=== PATIENT | male | born 1955 | race African-American/Black ===

== ENCOUNTER 2019-07-10 16:17 | Emergency (ER) | payer BC, OTHER ==
[2019-07-10 16:43] VITALS: BMI 28.7
--- NOTE | 2019-07-10 16:43 | PDOC ---
Rapid Medical Evaluation Chief Complaint: Pain, Acute Time Seen by Provider: 07/10/19 16:41 Medical Evaluation: Allergies Allergy/AdvReac Type Severity Reaction Status Date / Time No Known Allergies Allergy Verified 07/10/19 16:37 07/10/19 16:45 Pt c/o: fell off ladder c/o rt shoulder pain Pt on brief exam: noted seperation at ac joint, belt left in place Pt ordered for: shoulder /clavicle xray Pt to proceed to the ED Discharge Disposition - Diagnosis Anterior shoulder dislocation Fall Qualifiers: Encounter type: initial encounter Qualified Code(s): W19.XXXA - Unspecified fall, initial encounter - Discharge Dispostion Disposition: HOME Condition at time of disposition: Good - Referrals Referrals: Mason Lou MD [Primary Care Provider] - Keyon Blevins MD [Staff Physician] - - Patient Instructions Printed Discharge Instructions: DI for Shoulder Dislocation Additional Instructions: Please take tylenol as needed for pain relief. You may make a follow up appointment with an orthopedist (referral provided here ). If you experience any new, worsening, or concerning symptoms, including severe shoulder pain, right arm that is cool to touch, inability to move the arm, hand , or fingers, change in color of the arm, or any other concerns, please return to the emergency department. - Post Discharge Activity Work/School Note: Back to Work
[2019-07-10] MEDS ORDERED: LIDOCAINE HCL 1%, 10 MG/ML (20ML VIAL) ONE (18:05)
[2019-07-10 18:22] VITALS: TEMP 97.8
[2019-07-10] MEDS ORDERED: fentaNYL CITRATE/PF 1,000 MCG/20 ML AMPUL IVPUSH ONE (18:23)
[2019-07-10] MEDS ORDERED: KETAMINE HCL 200 MG/20 ML VIAL IVPUSH ONE (18:52)
[2019-07-10] MEDS ORDERED: KETAMINE HCL 200 MG/20 ML VIAL ONE (18:55)
--- NOTE | 2019-07-10 19:12 | PDOC ---
Documentation entered by Mohinder Hernandes SCRIBE, acting as scribe for Raquel Jones MD. Raquel Jones MD: This documentation has been prepared by the Cecilio maria Nirvannie, SCRIBE, under my direction and personally reviewed by me in its entirety. I confirm that the documentation accurately reflects all work, treatment, procedures, and medical decision making performed by me. Attending Attestation - Resident Resident Name: Akin Ordonez - ED Attending Attestation I have performed the following: I have examined & evaluated the patient, The case was reviewed & discussed with the resident, I agree w/resident's findings & plan, Exceptions are as noted - HPI HPI: 07/10/19 18:20 The patient is a 63 year old male, with a significant past medical history of htn, who presents to the emergency department s/p fall with right shoulder pain. As per patient, he fell off a ladder subsequently injuring his shoulder. Allergies: NKDA - Physicial Exam PE: 07/10/19 18:56 GENERAL: Well-appearing, well-nourished. No apparent distress. HEENT: Normocephalic, atraumatic. PERRL, EOM intact. CARDIOVASCULAR: Normal S1, S2. Regular rate and rhythm. PULMONARY: Clear to auscultation bilaterally. ABDOMEN: Soft, non-distended, non-tender. EXTREMITIES: +Deformed, discolored right shoulder. SKIN: Warm, dry. No rash NEUROLOGICAL: No focal neurological deficits. - Medical Decision Making 07/10/19 19:10 83-year-old male alert and oriented x3 he was fixing the ceiling inside his home and fell off a ladder onto his right side. He denies hitting his head or any loss of consciousness Patient signed paperwork for consent for sedation and shoulder reduction Patient was placed on nasal cannula oxygen, IV was established, repeat vital signs taken and patient has been on continuous cardiac monitoring 07/10/19 23:00 Postreduction x-ray shows good placement Sensation is intact in his left arm with good radial and ulnar pulses Impression anterior right shoulder dislocation, reduced Plan discharge home with sling to wear for 1 day, Motrin for pain follow-up with Ortho for any further concerns
--- NOTE | 2019-07-10 19:32 | PDOC ---
History of Present Illness - History of Present Illness Initial Comments: Mr. Padilla is a 63 y/o male with non-contributory PMH presenting today s/p mechanical fall from a ladder. Reports that he fell from around 7 feet and landed on his right shoulder. Denies head trauma or neck trauma. Reports pain over his right shoulder worse with range of motion, but denies pain anywhere else. <Akin Ordonez - Last Filed: 07/10/19 21:51> <Raquel Jones - Last Filed: 07/10/19 23:42> - General Chief Complaint: Pain, Acute Stated Complaint: SHOULDER INJUJRY Time Seen by Provider: 07/10/19 16:41 Past History - Past Medical History COPD: No HTN: Yes - Surgical History Abdominal Surgery: Yes (hernia) - Immunization History Immunization Up to Date: Yes - Psycho Social/Smoking Cessation Hx Smoking Status: No Smoking History: Never smoked Number of Cigarettes Smoked Daily: 0 Hx Alcohol Use: No Drug/Substance Use Hx: No <Akin Ordonez - Last Filed: 07/10/19 21:51> <Raquel Jones - Last Filed: 07/10/19 23:42> - Past Medical History Allergies/Adverse Reactions: Allergies Allergy/AdvReac Type Severity Reaction Status Date / Time No Known Allergies Allergy Verified 07/10/19 16:37 Home Medications: Ambulatory Orders Bisoprolol Fumarate/Hctz [Ziac 10-6.25 mg Tablet] 1 each PO 02/13/13 Hydrocodone Bit/Acetaminophen [Vicodin 5-300mg Tablet] 1 - 2 tab PO Q8H #15 tablet 02/13/13 Losartan Potassium [Cozaar] mg PO 02/13/13 Oxycodone HCl/Acetaminophen [Percocet 5-325 mg Tablet] 1 - 2 tab PO Q4H #0 tablet 02/13/13 Review of Systems - Review of Systems Comments:: GENERAL/CONSTITUTIONAL: No fever or chills. No weakness._ HEAD, EYES, EARS, NOSE AND THROAT: No change in vision. No change in hearing. No sore throat._ CARDIOVASCULAR: No chest pain or shortness of breath_ RESPIRATORY: Denies cough, hemoptysis_ GASTROINTESTINAL: No nausea, vomiting, diarrhea or constipation._ GENITOURINARY: No dysuria, frequency, or change in urination._ MUSCULOSKELETAL: Reports right shoulder pain and swelling. SKIN: No rash_ NEUROLOGIC: No headache, vertigo, loss of consciousness, or change in strength/ sensation._ ENDOCRINE: No increased thirst. No abnormal weight change_ HEMATOLOGIC/LYMPHATIC: No anemia, easy bleeding, or history of blood clots._ ALLERGIC/IMMUNOLOGIC: No hives or skin allergy._ <Akin Ordonez - Last Filed: 07/10/19 21:51> *Physical Exam - Vital Signs Last Vital Signs Temp Pulse Resp BP Pulse Ox 97.8 F 98 H 20 198/100 H 100 07/10/19 16:38 07/10/19 19:20 07/10/19 19:20 07/10/19 19:20 07/10/19 19:20 - Physical Exam GENERAL: Awake, alert, and oriented to person/place/time, in no acute distress_ HEAD: No signs of trauma, normoc ephalic, atraumatic _ EYES: PERRLA, EOMI, sclera anicteric, conjunctiva clear_ ENT: Hearing grossly normal, nares patent, oropharynx clear without exudates. No uvular deviation. Moist mucosa_ NECK: Normal ROM, supple, no lymphadenopathy, JVD, or masses_ LUNGS: No distress, speaks in full sentences, clear to auscultation bilaterally _ HEART: Regular rate and rhythm, normal S1 and S2, no murmurs appreciated, peripheral pulses normal and equal bilaterally._ ABDOMEN: Soft, nontender, normoactive bowel sounds. No guarding, no rebound. No masses_ EXTREMITIES: LUE/RLE/LLE: Normal inspection, Normal range of motion, no edema. No clubbing or cyanosis_ RUE: Inspection: No erythema or ecchymosis. Separation at the AC joint with associated TTP worse with range of motion. No open wounds. Compartments soft and compressible. Mild flattening of right deltoid. Sensation: Sensation intact over arm, forearm, hand. Sensation equal bilaterally. Motor: intact AIN/PIN/Ulnar in hand; 5/5 Wrist flex/ext; 4/5 Elbow flex/ext ( limited 2/2 pain); 3/5 Shoulder ABd,Flex (limited 2/2 pain) Vascular: 2+ radial pulse palpated, BCR all fingers <2 sec. NEUROLOGICAL: Cranial nerves II through XII grossly intact. Normal speech, normal gait, no focal sensorimotor deficits _ SKIN: Warm, Dry, normal turgor, no rashes or lesions noted_ <Akin Ordonez - Last Filed: 07/10/19 21:51> - Vital Signs Last Vital Signs Temp Pulse Resp BP Pulse Ox 97.8 F 87 18 144/108 H 98 07/10/19 16:38 07/10/19 23:08 07/10/19 23:08 07/10/19 23:08 07/10/19 23:08 <Raquel Jones - Last Filed: 07/10/19 23:42> ED Treatment Course - RADIOLOGY Radiology Studies Ordered: Category Date Time Status SHOULDER-RIGHT [RAD] Stat Radiology 07/10/19 19:09 Taken - Medications Given in the ED: ED Medications Discontinued Medications Generic Name Dose Route Start Last Admin Trade Name Freq PRN Reason Stop Dose Admin Fentanyl 100 mcg 07/10/19 18:28 07/10/19 18:39 Sublimaze Injection - IVPUSH 07/10/19 18:29 100 mcg ONCE ONE Administration Ketamine HCl 144 mg 07/10/19 18:52 07/10/19 18:50 Ketalar - 1.5 mg/kg (144 mg) 07/10/19 18:53 144 mg IVPUSH Administration ONCE ONE <Akin Ordonez - Last Filed: 07/10/19 21:51> - Medications Given in the ED: ED Medications Discontinued Medications Generic Name Dose Route Start Last Admin Trade Name Freq PRN Reason Stop Dose Admin Fentanyl 100 mcg 07/10/19 18:28 07/10/19 18:39 Sublimaze Injection - IVPUSH 07/10/19 18:29 100 mcg ONCE ONE Administration Ketamine HCl 144 mg 07/10/19 18:52 07/10/19 18:50 Ketalar - 1.5 mg/kg (144 mg) 07/10/19 18:53 144 mg IVPUSH Administration ONCE ONE Midazolam HCl 1 mg 07/10/19 21:13 07/10/19 21:39 Versed - IVPUSH 07/10/19 21:14 1 mg ONCE ONE Administration Morphine Sulfate 4 mg 07/10/19 21:05 07/10/19 21:13 Morphine Injection - IVPUSH 07/10/19 21:06 4 mg ONCE ONE Administration Morphine Sulfate 2 mg 07/10/19 21:24 07/10/19 21:39 Morphine Injection - IVPUSH 07/10/19 21:25 2 mg ONCE ONE Administration <Raquel Jones - Last Filed: 07/10/19 23:42> Medical Decision Making - Medical Decision Making 63M presenting s/p mechanical fall off a ladder 7 feet with right shoulder dislocation seen on XR. Will plan to reduce joint and d/c home with PCP f/u. CONSCIOUS SEDATION NOTE #1 Indication: right shoulder dislocation reduction. Pre-sedation history and examination revealed: ASA physical status 1; family history negative for adverse anesthetic/sedative reactions; airway class I; normal dentition/neck mobility; and no contraindications to sedation. Risks, benefits and alternatives were discussed with patient, who desired to proceed. O2 saturation , and BP constantly monitored during sedation. A qualified nurse and additional provider were present during the sedation. The patient received 100 mg ketamine , achieving an appropriate level of sedation. The patient then underwent right shoulder reduction. Total sedation time for which I was present was 45 until minimal consciousness and responsiveness achieved, and deep/moderate sedation was no longer present. There were no significant O2 desaturations or complications during this sedation and procedure. Patient was subsequently monitored until reevaluation revealed patient was back to neurologic baseline. JOINT REDUCTION PROCEDURE NOTE Joint reduction Indication: Dislocation of right shoulder. Consent: The risks and benefits of the procedure including incomplete reduction, secondary fracture , nerve damage and bleeding were explained and the patient verbalized their understanding and wished to proceed with the procedure. Written consent was obtained following the discussion. [place] Protocol: a timeout was performed and the correct patient and site were verified. Procedure: Neurovascular exam intact prior to joint reduction. Skin exam: no bleeding or lacerations at the dislocation site. Conscious sedation performed by emergency department attending physician. Anesthesia/pain control, using aseptic technique, was administered using a hematoma block of 10 ml of 1% lidocaine. Reduction of the right shoulder was accomplished via traction-countertraction, scapular massage, and external rotation of the right upper extremity. The joint was immobilized with sling. Distally, the extremity was neurovascularly intact following the procedure. The patient tolerated the procedure well. Post reduction films obtained and demonstrated an adequate reduction. Complications: None CONSCIOUS SEDATION NOTE #2 Indication: right shoulder dislocation reduction. Pre-sedation history and examination revealed: ASA physical status 1; family history negative for adverse anesthetic/sedative reactions; airway class I; normal dentition/neck mobility; and no contraindications to sedation. Risks, benefits and alternatives were discussed with patient, who desired to proceed. O2 saturation , and BP constantly monitored during sedation. A qualified nurse and additional provider were present during the sedation. The patient received 6 mg morphine and 2 mg Versed, achieving an appropriate level of sedation. The patient then underwent right shoulder reduction. Total sedation time for which I was present was 45 until minimal consciousness and responsiveness achieved, and deep/ moderate sedation was no longer present. There were no significant O2 desaturations or complications during this sedation and procedure. Patient was subsequently monitored until reevaluation revealed patient was back to neurologic baseline. <Akin Ordonez - Last Filed: 07/10/19 21:51> Discharge <Akin Ordonez - Last Filed: 07/10/19 21:51> - Discharge Information Problems reviewed: Yes - Admission No <Raquel Jones - Last Filed: 07/10/19 23:42> - Discharge Information Clinical Impression/Diagnosis: Fall Qualifiers: Encounter type: initial encounter Qualified Code(s): W19.XXXA - Unspecified fall, initial encounter Anterior shoulder dislocation Qualifiers: Encounter type: initial encounter Condition: Good Disposition: HOME - Follow up/Referral Referrals: Mason Lou MD [Primary Care Provider] - Keyon Blevins MD [Staff Physician] - - Patient Discharge Instructions Patient Printed Discharge Instructions: DI for Shoulder Dislocation Additional Instructions: Please take tylenol as needed for pain relief. You may make a follow up appointment with an orthopedist (referral provided here ). If you experience any new, worsening, or concerning symptoms, including severe shoulder pain, right arm that is cool to touch, inability to move the arm, hand , or fingers, change in color of the arm, or any other concerns, please return to the emergency department. - Post Discharge Activity Work/Back to School Note: Back to Work
[2019-07-10] MEDS ORDERED: morphine CARPU-JECT 4 MG/1 ML DISP.SYRIN IVPUSH ONE (21:05)
[2019-07-10] MEDS ORDERED: MORPHINE SULFATE 2 MG/ML VIAL ONE ×3 (21:07→21:25)
[2019-07-10] MEDS ORDERED: MIDAZOLAM HCL 2 MG/2 ML SINGLE DOSE VIAL IVPUSH ONE (21:13)
[2019-07-10] MEDS ORDERED: MIDAZOLAM HCL 2 MG/2 ML SINGLE DOSE VIAL ONE (21:20)
[2019-07-10] MEDS ORDERED: morphine CARPU-JECT 2 MG/1 ML DISP.SYRIN IVPUSH ONE (21:24)
[2019-07-10 22:03] VITALS: PULSE 87
[2019-07-11 04:08] VITALS: BP 144/108
== END 2019-07-10 23:55 | disposition home or self-care (01) ==
LOC: JER 16:17 → SUPCPDRO 16:17 → JER 23:55
PROC: 3E033NZ Introduction of Analgesics, Hypnotics, Sedatives into Peripheral Vein, Percutaneous Approach (ICD-10-PCS; principal; 2019-07-10)
PROC: 3E033NZ Introduction of Analgesics, Hypnotics, Sedatives into Peripheral Vein, Percutaneous Approach (ICD-10-PCS; 2019-07-10)
PROC: 3E033NZ Introduction of Analgesics, Hypnotics, Sedatives into Peripheral Vein, Percutaneous Approach (ICD-10-PCS; 2019-07-10)
PROC: 3E033NZ Introduction of Analgesics, Hypnotics, Sedatives into Peripheral Vein, Percutaneous Approach (ICD-10-PCS; 2019-07-10)
PROC: 3E033FZ Introduction of Intracirculatory Anesthetic into Peripheral Vein, Percutaneous Approach (ICD-10-PCS; 2019-07-10)
PROC: 0RSJXZZ Reposition Right Shoulder Joint, External Approach (ICD-10-PCS; 2019-07-10)
DX: S43.084A Other dislocation of right shoulder joint, initial encounter (principal); W11.XXXA Fall on and from ladder, initial encounter; Y93.E9 Activity, other interior property and clothing maintenance; Y92.018 Other place in single-family (private) house as the place of occurrence of the external cause; Y99.8 Other external cause status
CPT/HCPCS: 23650; 73000-TC-RT-FY; 73030-TC-RT-FY; 96374; 96375; 96376; 99282-25